=== PATIENT | male | born 1990 | race Caucasian/White ===

== ENCOUNTER 2021-10-30 03:46 | Emergency (ER) | payer SELFPAY ==
[~2021-10-30] VITALS: Ht 177.8 cm; Wt 72.7 kg
[~2021-10-30 03:46] MED LIST: ONDA4TAB6 PO
--- NOTE | 2021-10-30 04:11 | NUR ---
attempted to notify pt of need for a CT scan. pt was still combative. attempted to notify pt of the need for moderate sedation for the CT due to his inability to stay still. pt was still combative and spitting. notified the physician of these findings.
[2021-10-30] MEDS ORDERED: ketamine 50 mg/ml 10ml vial IM ONE (04:20)
--- NOTE | 2021-10-30 04:34 | NUR ---
pt is ALOC and unable to consent for moderate sedation procedure. we are doing an emergent sedation.
[2021-10-30 06:33] VITALS: BP 120/76
--- NOTE | 2021-10-30 06:34 | NUR ---
Assumed care. Pt. supine in bed sleeping
--- NOTE | 2021-10-30 06:35 | NUR ---
Ferdinand grossman in ED - 10/30/21 at 0654 by TODD First contact with pt. sitting up in bed with no distress.
--- NOTE | 2021-10-30 06:50 | NUR ---
Ferdinand grossman in [facility] - 10/30/21 at 0654 by TODD Ambulated to restroom with no issues.
--- NOTE | 2021-10-30 07:27 | NUR ---
pt. attempted to stand, but was very unsteady. returned to bed without incident. pt. is verbally aggressive with staff stating, "I don't trust you" and "I hates [employer]" reoriented pt. to hospital enviroment. pt. sitting semi fowlers on gurney.
== END 2021-10-30 08:00 ==
LOC: ER 03:46
DX: S05.12XA Contusion of eyeball and orbital tissues, left eye, initial encounter (principal); F10.129 Alcohol abuse with intoxication, unspecified; N39.498 Other specified urinary incontinence; Y04.8XXA Assault by other bodily force, initial encounter; Y93.89 Activity, other specified; Y92.89 Other specified places as the place of occurrence of the external cause; Y99.8 Other external cause status; Y90.9 Presence of alcohol in blood, level not specified
CPT/HCPCS: 70450; 70486; 71045; 72125; 94799; 96372; 99285; J3490; 94760